=== PATIENT | male | born 1955 ===

== ENCOUNTER 2017-06-13 15:35 | Emergency (ER) | payer MEDICARE, OTHER ==
[2017-06-13] MEDS ORDERED: ALBUTEROL/IPRATROPIUM 1 VIAL SOL INH ONE (16:06)
[2017-06-13] MEDS ORDERED: PREDNISONE 20 MG TAB PO ONE (16:09)
[2017-06-13] MEDS ORDERED: ALBUTEROL/IPRATROPIUM 1 VIAL SOL ONE (16:11)
[2017-06-13] MEDS ORDERED: PREDNISONE 20 MG TAB ONE (16:11)
[2017-06-13 16:15] VITALS: BP 105/65
[2017-06-13 16:36] VITALS: RESP 28
[2017-06-13 17:06] VITALS: PULSE 102; TEMP 98.6; O2SAT 94
== END 2017-06-13 17:04 | disposition home or self-care (01) | DRG 192 ==
LOC: ED 15:35
DX: J44.1 Chronic obstructive pulmonary disease with (acute) exacerbation (principal)
CPT/HCPCS: 71046; 99283; J7620

== ENCOUNTER 2018-09-10 19:58 | Emergency (ER) | payer BC ==
[2018-09-10] MEDS ORDERED: ALBUTEROL/IPRATROPIUM 1 VIAL SOL ONE (20:02)
[2018-09-10] MEDS: ALBUTEROL/IPRATROPIUM 1 VIAL SOL INH ONE (20:03)
[2018-09-10] MEDS: SODIUM CHLORIDE 0.9% 500 ML 500 ML IV SCH (20:15)
[2018-09-10 20:19] VITALS: TEMP 98.1
[2018-09-10] MEDS: SOLUMEDROL 125 MG/2 ML 125 MG/2 ML PDS IV ONE (20:20)
[2018-09-10 20:27] LABS: BASOPHILS % (AUTO) 1 % (0-3); EOSINOPHILS % (AUTO) 1 % (0-9); HEMATOCRIT 41 % (39-53); HEMOGLOBIN 12.9 gm/dl (13.5-17.7); LYMPHOCYTES % (AUTO) 10.9 % (10-50); MEAN CORPUSCULAR HEMOGLOBIN 26.8 pg (27.0-32.0); MEAN CORPUSCULAR HGB CONC 31.6 gm/dl (32.0-36.0); MEAN CORPUSCULAR VOLUME 85 fL (80-100); MONOCYTES % (AUTO) 14.5 % (0-12); NEUTROPHILS % (AUTO) 72.5 % (37-80)
[2018-09-10] MEDS ORDERED: SOLUMEDROL 125 MG/2 ML 125 MG/2 ML PDS ONE (20:40)
[2018-09-10 20:44] LABS: ALBUMIN 2.6 gm/dl (3.4-5.0); BILIRUBIN,TOTAL 1.5 mg/dl (0.2-1.0); CALCIUM 8.1 mg/dl (8.5-10.1); CREATININE 1.62 mg/dl (0.80-1.30); POTASSIUM 4.1 mMol/L (3.5-5.1); TOTAL PROTEIN 6.2 gm/dl (6.4-8.2)
[2018-09-10 20:45] LABS: TROP I 0.072 ng/ml (0.000-0.056)
[2018-09-10] MEDS ORDERED: KETOROLAC TROMETHAMINE 30 MG/ML SOL ONE (21:12)
[2018-09-10] MEDS: KETOROLAC TROMETHAMINE 30 MG/ML SOL IV ONE (21:15)
[2018-09-10] MEDS: ASPIRIN 81 MG CHEWABLE CTB PO ONE (21:27)
[2018-09-10] MEDS ORDERED: ASPIRIN 81 MG CHEWABLE CTB ONE (21:33)
[2018-09-10] MEDS: ONDANSETRON HCL 4 MG/2 ML SOL IV ONE (22:15)
[2018-09-10] MEDS: MORPHINE SULFATE 10 MG/ML SOL IV ONE (22:15)
[2018-09-10] MEDS ORDERED: MORPHINE SULFATE 10 MG/ML SOL ONE (22:28)
[2018-09-10] MEDS ORDERED: ONDANSETRON HCL 4 MG/2 ML SOL ONE (22:28)
[2018-09-11 01:48] VITALS: BP 105/69; PULSE 86; RESP 14; O2SAT 94
== END 2018-09-10 22:42 | disposition short-term general hospital (02) ==
LOC: ED 19:58
DX: I21.4 Non-ST elevation (NSTEMI) myocardial infarction (principal); J44.9 Chronic obstructive pulmonary disease, unspecified; J44.1 Chronic obstructive pulmonary disease with (acute) exacerbation; I10 Essential (primary) hypertension; E66.9 Obesity, unspecified; Z72.0 Tobacco use; F12.90 Cannabis use, unspecified, uncomplicated; E11.9 Type 2 diabetes mellitus without complications; R06.02 Shortness of breath
CPT/HCPCS: 36415; 71101; 80053; 83880; 84484; 85025; 93005; 96365; 96366; 96374; 96375; 99285; 99291; J1885; J2270; J2405; J2930

== ENCOUNTER 2019-01-04 09:57 | Emergency (ER) | payer OTHER ==
[2019-01-04 10:13] VITALS: TEMP 98.9
[2019-01-04] MEDS ORDERED: SODIUM CHLORIDE 0.9% FLUSH 10 ML SOL IV PRN (10:14)
[2019-01-04] MEDS ORDERED: ASPIRIN 81 MG CHEWABLE CTB PO STA (10:14)
[2019-01-04] MEDS ORDERED: NITROGLYCERIN 0.4 MG TAB SL PRN (10:14)
[2019-01-04] MEDS ORDERED: ASPIRIN 81 MG CHEWABLE CTB ONE (10:18)
[2019-01-04 10:28] LABS: BASOPHILS % (AUTO) 2 % (0-3); EOSINOPHILS % (AUTO) 4 % (0-9); HEMATOCRIT 41 % (39-53); HEMOGLOBIN 13.2 gm/dl (13.5-17.7); LYMPHOCYTES % (AUTO) 9.2 % (10-50); MEAN CORPUSCULAR HEMOGLOBIN 28.1 pg (27.0-32.0); MEAN CORPUSCULAR HGB CONC 31.8 gm/dl (32.0-36.0); MEAN CORPUSCULAR VOLUME 88 fL (80-100); MONOCYTES % (AUTO) 11.6 % (0-12); NEUTROPHILS % (AUTO) 73.3 % (37-80)
[2019-01-04] MEDS ORDERED: ALBUTEROL/IPRATROPIUM 1 VIAL SOL INH ONE (10:39)
[2019-01-04] MEDS ORDERED: ALBUTEROL/IPRATROPIUM 1 VIAL SOL ONE (10:44)
[2019-01-04 10:49] LABS: ALBUMIN 2.6 gm/dl (3.4-5.0); BILIRUBIN,TOTAL 1.2 mg/dl (0.2-1.0); CALCIUM 7.8 mg/dl (8.5-10.1); CARBON DIOXIDE 28.4 mEq/L (21-32); CREATININE 1.45 mg/dl (0.80-1.30); TOTAL PROTEIN 5.7 gm/dl (6.4-8.2); TROP I 0.128 ng/ml (0.000-0.056)
[2019-01-04 10:59] LABS: APPEARANCE,URINE Clear; BILIRUBIN,URINE 1+ (NEGATIVE); COLOR,URINE Dark yellow; GLUCOSE, URINE (UA) NEGATIVE (NEGATIVE); KETONES,URINE TRACE (NEGATIVE); LEUKOCYTE ESTERASE ,URINE NEGATIVE (NEGATIVE); NITRATE,URINE NEGATIVE (NEGATIVE); OCCULT BLOOD,URINE NEGATIVE (NEG-TRACE); PH,URINE 5.5
[2019-01-04 11:21] LABS: CRYSTALS NEGATIVE (0-3 AVE/HPF); ICTOTEST,URINE NEGATIVE (NEGATIVE)
[2019-01-04 11:22] LABS: BACTERIA TRACE (< 1+)
[2019-01-04] MEDS ORDERED: MORPHINE SULFATE 10 MG/ML SOL IV ONE (11:41)
[2019-01-04] MEDS ORDERED: HEPARIN SODIUM 5000 U/ML SOL IV ONE (11:44)
[2019-01-04] MEDS ORDERED: MORPHINE SULFATE 10 MG/ML SOL ONE (11:51)
[2019-01-04 12:02] LABS: INR 1.1 (0.87-1.13)
[2019-01-04] MEDS ORDERED: HEPARIN SODIUM 5000 U/ML SOL ONE (12:12)
[2019-01-04 12:59] VITALS: RESP 20
[2019-01-04 13:00] VITALS: PULSE 86; O2SAT 94
[2019-01-04 13:01] VITALS: BP 142/88
== END 2019-01-04 12:35 | disposition short-term general hospital (02) ==
LOC: ED 09:57
DX: R07.9 Chest pain, unspecified (principal); I21.4 Non-ST elevation (NSTEMI) myocardial infarction; T14.8XXA Other injury of unspecified body region, initial encounter; N28.9 Disorder of kidney and ureter, unspecified; J44.9 Chronic obstructive pulmonary disease, unspecified; E11.9 Type 2 diabetes mellitus without complications; I10 Essential (primary) hypertension; R06.2 Wheezing
CPT/HCPCS: 71046; 71275; 80053; 81001; 82550; 83880; 84484; 85025; 85379; 85610; 93005; 96374; 96375; 99284; 99285; J1644; J2270; Q9967

== ENCOUNTER 2019-01-08 06:49 | Emergency (ER) | payer OTHER ==
[2019-01-08 07:07] VITALS: TEMP 97
[2019-01-08] MEDS ORDERED: SODIUM CHLORIDE 0.9% 1000ML 1,000 ML IV SCH (07:15)
[2019-01-08 07:23] LABS: BASOPHILS % (AUTO) 1 % (0-3); EOSINOPHILS % (AUTO) 6 % (0-9); HEMATOCRIT 42 % (39-53); HEMOGLOBIN 13.2 gm/dl (13.5-17.7); LYMPHOCYTES % (AUTO) 8.6 % (10-50); MEAN CORPUSCULAR HEMOGLOBIN 28.1 pg (27.0-32.0); MEAN CORPUSCULAR HGB CONC 31.7 gm/dl (32.0-36.0); MEAN CORPUSCULAR VOLUME 89 fL (80-100); MONOCYTES % (AUTO) 9.9 % (0-12)
[2019-01-08 07:41] LABS: ALBUMIN 2.9 gm/dl (3.4-5.0); BILIRUBIN,DIRECT 0.6 mg/dl (0.0-0.2); CALCIUM 8.6 mg/dl (8.5-10.1); CREATININE 1.73 mg/dl (0.80-1.30); TROP I 0.127 ng/ml (0.000-0.056)
[2019-01-08 08:22] VITALS: BP 179/107
[2019-01-08] MEDS ORDERED: ALBUTEROL NEB SOL 2.5MG/3ML 1 VIAL SOL ONE (08:53)
[2019-01-08] MEDS ORDERED: ALBUTEROL NEB SOL 2.5MG/3ML 1 VIAL SOL NEB ONE (08:55)
[2019-01-08] MEDS ORDERED: HYDROMORPHONE 1 MG/ML SYRINGE IV PRN (08:57)
[2019-01-08 08:59] VITALS: PULSE 72; RESP 24; O2SAT 87
[2019-01-08] MEDS ORDERED: HYDROMORPHONE 1 MG/ML SYRINGE ONE (09:00)
[2019-01-08 09:07] LABS: APPEARANCE,URINE Clear; BILIRUBIN,URINE 2+ (NEGATIVE); COLOR,URINE Dark yellow; GLUCOSE, URINE (UA) NEGATIVE (NEGATIVE); KETONES,URINE TRACE (NEGATIVE); LEUKOCYTE ESTERASE ,URINE NEGATIVE (NEGATIVE); NITRATE,URINE NEGATIVE (NEGATIVE); OCCULT BLOOD,URINE 1+ (NEG-TRACE)
[2019-01-08 09:19] LABS: BACTERIA TRACE (< 1+); CRYSTALS NEGATIVE (0-3 AVE/HPF); EPITHELIAL CELLS 0-1 (SQUAMOUS); ICTOTEST,URINE NEGATIVE (NEGATIVE); WBC,URINE 0-3 (0-5AV/HPF)
== END 2019-01-08 09:19 | disposition short-term general hospital (02) ==
LOC: ED 06:49
DX: R10.9 Unspecified abdominal pain (principal); E11.9 Type 2 diabetes mellitus without complications; R53.1 Weakness; R06.02 Shortness of breath; R11.0 Nausea; R79.89 Other specified abnormal findings of blood chemistry; R79.1 Abnormal coagulation profile; R91.8 Other nonspecific abnormal finding of lung field
CPT/HCPCS: 36415; 71045; 80048; 80076; 81001; 83605; 83690; 83880; 84484; 85025; 85379; 93005; 96374; 99284; 99285; J7613; J1170

== ENCOUNTER 2019-01-15 18:23 | Emergency (ER) | payer OTHER | END 2019-01-15 21:45 | disposition home or self-care (01) | LOC: ED 18:23 ==

== ENCOUNTER 2019-01-16 15:32 | Inpatient (IN) | payer OTHER ==
[2019-01-16 16:58] LABS: BASOPHILS % (AUTO) 0 % (0-3); EOSINOPHILS % (AUTO) 0 % (0-9); HEMATOCRIT 37 % (39-53); HEMOGLOBIN 11.8 gm/dl (13.5-17.7); LYMPHOCYTES % (AUTO) 2.6 % (10-50); MEAN CORPUSCULAR HEMOGLOBIN 28.8 pg (27.0-32.0); MEAN CORPUSCULAR HGB CONC 31.8 gm/dl (32.0-36.0); MEAN CORPUSCULAR VOLUME 91 fL (80-100); MONOCYTES % (AUTO) 4.4 % (0-12); NEUTROPHILS % (AUTO) 92.6 % (37-80)
[2019-01-16 17:14] LABS: ALBUMIN 2.8 gm/dl (3.4-5.0); BILIRUBIN,TOTAL 1.9 mg/dl (0.2-1.0); CARBON DIOXIDE 25.3 mEq/L (21-32); CREATININE 2.51 mg/dl (0.80-1.30); MAGNESIUM 1.7 mg/dl (1.8-2.4); TOTAL PROTEIN 6.1 gm/dl (6.4-8.2); TROP I 0.056 ng/ml (0.000-0.056)
[2019-01-16] MEDS ORDERED: ALPRAZOLAM 0.25 MG TAB PO PRN (20:35)
[2019-01-16] MEDS ORDERED: HYDROMORPHONE HCL 2 MG TAB PO PRN (20:45)
[2019-01-16] MEDS ORDERED: POTASSIUM CHLORIDE 2 MEQ/ML SOL IV ONE (20:55)
[2019-01-16] MEDS: SODIUM CHLORIDE 0.45% 1000 ML 1,000 ML with POTASSIUM CHLORIDE 2 MEQ/ML 20 MEQ IV SCH (20:57)
[2019-01-16] MEDS: BACITRACIN 500 U/GM OIN TOP SCH (21:03)
[2019-01-16] MEDS: DOXYCYCLINE 100 MG TAB PO SCH (21:03)
[2019-01-16] MEDS: LEVEMIR PEN SC SCH (21:08)
[2019-01-16] MEDS: ALBUTEROL/IPRATROPIUM 1 VIAL SOL INH SCH (21:09)
[2019-01-16] MEDS: ACETAMINOPHEN 500 MG 500 MG TAB PO PRN (21:21)
[2019-01-16] MEDS ORDERED: SODIUM CHLORIDE 0.9% 1000ML 1,000 ML IV ONE (22:00)
[2019-01-16] MEDS: ENOXAPARIN 100 MG SOL SC SCH (22:09)
[2019-01-17 00:17] LABS: APPEARANCE,URINE Slightly Cloudy; BILIRUBIN,URINE 1+ (NEGATIVE); COLOR,URINE Amber; GLUCOSE, URINE (UA) NEGATIVE (NEGATIVE); KETONES,URINE TRACE (NEGATIVE); LEUKOCYTE ESTERASE ,URINE NEGATIVE (NEGATIVE); NITRATE,URINE NEGATIVE (NEGATIVE); OCCULT BLOOD,URINE NEGATIVE (NEG-TRACE)
[2019-01-17 00:29] LABS: EPITHELIAL CELLS 0-1 (SQUAMOUS); ICTOTEST,URINE NEGATIVE (NEGATIVE); RBC,URINE NEG (0-3AV/HPF); WBC,URINE NEG (0-5AV/HPF)
[2019-01-17 00:30] LABS: BACTERIA 2+ (< 1+); CRYSTALS NEGATIVE (0-3 AVE/HPF)
[2019-01-17] MEDS: ALBUTEROL/IPRATROPIUM 1 VIAL SOL INH SCH ×4 (03:15→20:52)
[2019-01-17] MEDS ORDERED: POTASSIUM CHLORIDE 2 MEQ/ML SOL IV ONE ×3 (04:24→22:00)
[2019-01-17] MEDS: SODIUM CHLORIDE 0.45% 1000 ML 1,000 ML with POTASSIUM CHLORIDE 2 MEQ/ML 20 MEQ IV SCH ×3 (04:45→22:18)
[2019-01-17] MEDS: ACETAMINOPHEN 500 MG 500 MG TAB PO PRN ×2 (06:03→20:52)
[2019-01-17 07:25] LABS: CALCIUM 7.5 mg/dl (8.5-10.1); CARBON DIOXIDE 23.6 mEq/L (21-32); CREATININE 2.48 mg/dl (0.80-1.30)
[2019-01-17 07:48] LABS: BASOPHILS % (AUTO) 1 % (0-3); EOSINOPHILS % (AUTO) 0 % (0-9); HEMATOCRIT 35 % (39-53); HEMOGLOBIN 11.2 gm/dl (13.5-17.7); LYMPHOCYTES % (AUTO) 2.4 % (10-50); MEAN CORPUSCULAR HEMOGLOBIN 29.2 pg (27.0-32.0); MEAN CORPUSCULAR HGB CONC 32.3 gm/dl (32.0-36.0); MEAN CORPUSCULAR VOLUME 91 fL (80-100); MONOCYTES % (AUTO) 6.5 % (0-12); NEUTROPHILS % (AUTO) 90.3 % (37-80)
[2019-01-17] MEDS ORDERED: OMEPRAZOLE 20 MG CAPSULE PO SCH (09:00)
[2019-01-17] MEDS ORDERED: FUROSEMIDE 20 MG TAB PO SCH (09:00)
[2019-01-17] MEDS ORDERED: METOPROLOL SUCCINATE 25 MG TAB.ER.24H PO SCH (09:00)
[2019-01-17] MEDS ORDERED: POTASSIUM CHLORIDE 10 MEQ CAPSULE PO SCH (09:00)
[2019-01-17] MEDS: BACITRACIN 500 U/GM OIN TOP SCH ×2 (10:05→20:52)
[2019-01-17] MEDS: NICOTINE 7 MG PATCH TD SCH (10:05)
[2019-01-17] MEDS: POTASSIUM CHLORIDE 10 MEQ TER PO SCH (10:05)
[2019-01-17] MEDS: NOVOLOG FLEXPEN SC SCH (10:06)
[2019-01-17] MEDS: ENOXAPARIN 100 MG SOL SC SCH ×2 (10:06→21:00)
[2019-01-17] MEDS: DOXYCYCLINE 100 MG TAB PO SCH ×2 (10:08→20:52)
[2019-01-17] MEDS: PREDNISONE 20 MG TAB PO SCH (10:08)
[2019-01-17] MEDS: FLUOXETINE HYDROCHLORIDE 10 MG CAP PO SCH (10:09)
[2019-01-17] MEDS: METOPROLOL SUCCINATE 50 MG TER PO SCH (10:09)
[2019-01-17] MEDS: PANTOPRAZOLE SODIUM 40 MG ECT PO SCH (10:09)
[2019-01-17] MEDS: LEVEMIR PEN SC SCH (21:01)
[2019-01-18] MEDS: ALBUTEROL/IPRATROPIUM 1 VIAL SOL INH SCH ×3 (02:06→09:51)
[2019-01-18] MEDS: ACETAMINOPHEN 500 MG 500 MG TAB PO PRN ×2 (04:54→09:55)
[2019-01-18 07:09] LABS: CARBON DIOXIDE 23.4 mEq/L (21-32); CREATININE 2.15 mg/dl (0.80-1.30)
[2019-01-18] MEDS ORDERED: LORAZEPAM 0.5 MG TAB PO PRN (08:16)
[2019-01-18] MEDS ORDERED: ALBUTEROL NEB SOL 2.5MG/3ML 1 VIAL SOL NEB PRN (08:17)
[2019-01-18] MEDS ORDERED: FUROSEMIDE 20mg SOL ONE (08:55)
[2019-01-18] MEDS ORDERED: LORAZEPAM 0.5 MG TAB ONE (08:56)
[2019-01-18] MEDS ORDERED: FUROSEMIDE 20mg SOL IV SCH (09:00)
[2019-01-18] MEDS ORDERED: SODIUM CHLORIDE 0.9% FLUSH 10 ML SOL IV SCH (09:00)
[2019-01-18] MEDS: DOXYCYCLINE 100 MG TAB PO SCH (09:51)
[2019-01-18] MEDS: BACITRACIN 500 U/GM OIN TOP SCH (09:51)
[2019-01-18] MEDS: POTASSIUM CHLORIDE 10 MEQ TER PO SCH (09:54)
[2019-01-18] MEDS: PREDNISONE 20 MG TAB PO SCH (09:54)
[2019-01-18] MEDS: PANTOPRAZOLE SODIUM 40 MG ECT PO SCH (09:54)
[2019-01-18] MEDS: NICOTINE 7 MG PATCH TD SCH (09:54)
[2019-01-18] MEDS: FLUOXETINE HYDROCHLORIDE 10 MG CAP PO SCH (09:55)
[2019-01-18] MEDS: METOPROLOL SUCCINATE 50 MG TER PO SCH (09:55)
[2019-01-18] MEDS: NOVOLOG FLEXPEN SC SCH (09:56)
[2019-01-18 10:36] LABS: ABG PH 7.4 (7.35-7.45)
[2019-01-18] MEDS ORDERED: DEXTROSE 50% 1 VIAL SOL IV ONE (12:54)
[2019-01-18] MEDS: SODIUM CHLORIDE 0.45% 1000 ML 1,000 ML with POTASSIUM CHLORIDE 2 MEQ/ML 20 MEQ IV SCH (14:01)
[2019-01-18 14:11] VITALS: RESP 20
[2019-01-18 15:02] VITALS: BP 173/102; PULSE 78; TEMP 97.5; O2SAT 95
== END 2019-01-18 14:57 | disposition short-term general hospital (02) | DRG 133 ==
LOC: ED 15:32 → ACUTE CARE 18:33 → UNDOADMIN 18:33 → ACUTE CARE 19:25
PROVIDERS: ADMIT Family Medicine; ATTEND Family Medicine
PROC: F02Z0FZ Bathing/Showering Assessment using Assistive, Adaptive, Supportive or Protective Equipment (ICD-10-PCS; principal; 2019-01-17)
PROC: F02Z3FZ Grooming/Personal Hygiene Assessment using Assistive, Adaptive, Supportive or Protective Equipment (ICD-10-PCS; 2019-01-17)
PROC: F01L0FZ Muscle Performance Assessment of Musculoskeletal System - Lower Back / Lower Extremity using Assistive, Adaptive, Supportive or Protective Equipment (ICD-10-PCS; 2019-01-17)
PROC: F01L5YZ Range of Motion and Joint Integrity Assessment of Musculoskeletal System - Lower Back / Lower Extremity using Other Equipment (ICD-10-PCS; 2019-01-17)
DX: J96.21 Acute and chronic respiratory failure with hypoxia (principal); N17.9 Acute kidney failure, unspecified; R53.1 Weakness; R26.2 Difficulty in walking, not elsewhere classified; E11.9 Type 2 diabetes mellitus without complications; R06.02 Shortness of breath; F17.210 Nicotine dependence, cigarettes, uncomplicated; R79.1 Abnormal coagulation profile; Z79.4 Long term (current) use of insulin
CPT/HCPCS: 36415; 36600; 71045; 80048; 80053; 81001; 82803; 82962; 83735; 83880; 84484; 85025; 85379; 87088; 93005; 93012; 94150; 94640; 94664; 99284; 99285; J1650; J1815; J1940; J3480; J7613; Q9967; A6232; A9270-GY